=== PATIENT | female | born 1960 | race Caucasian/White ===

== ENCOUNTER 2018-01-22 20:04 | Emergency (ER) | payer OTHER ==
[~2018-01-22] VITALS: Ht 157.5 cm; Wt 121.1 kg
[~2018-01-22 20:04] MED LIST: ACET500 PO; DEXA4 PO; ENOX120I SUBQ; FERR325 PO; HYDACE5 PO; IBUPROFEN; IRON; LEVSOD200 PO; LEVSOD75 PO; LOPE2C PO; LORA1 PO; LOSA50 PO; OMEP10ER PO; OMEP20ER PO; PROC10 PO; SERT25 PO; SERT50 PO; TRAM50 PO; WARF5 PO
[2018-01-22] MEDS ORDERED: ANAS1 PO (20:28)
[2018-01-22] MEDS ORDERED: ROPI2 PO (20:29)
[2018-01-22] MEDS ORDERED: [UNRECOGNIZED DRUG - OTHER] (20:30)
== END 2018-01-22 22:31 | disposition home or self-care (01) ==
LOC: ER 20:04
DX: M79.89 Other specified soft tissue disorders (principal); F32.9 Major depressive disorder, single episode, unspecified; K21.9 Gastro-esophageal reflux disease without esophagitis; I10 Essential (primary) hypertension; E03.9 Hypothyroidism, unspecified; Z88.5 Allergy status to narcotic agent; Z88.8 Allergy status to other drugs, medicaments and biological substances; Z79.899 Other long term (current) drug therapy
CPT/HCPCS: 73130; 93971; 99284

== ENCOUNTER 2019-07-10 16:37 | Emergency (ER) | payer MEDICARE ==
[~2019-07-10] VITALS: Ht 157.5 cm; Wt 114.3 kg
[~2019-07-10 16:37] MED LIST changes: +ANAS1 PO; +ROPI2 PO; +[UNRECOGNIZED DRUG - OTHER]
[2019-07-10] MEDS ORDERED: Roxicodone5 MG PO (18:39)
== END 2019-07-10 19:20 | disposition home or self-care (01) ==
LOC: ER 16:37
DX: S52.572A Other intraarticular fracture of lower end of left radius, initial encounter for closed fracture (principal); S52.602A Unspecified fracture of lower end of left ulna, initial encounter for closed fracture; W01.198A Fall on same level from slipping, tripping and stumbling with subsequent striking against other object, initial encounter; K21.9 Gastro-esophageal reflux disease without esophagitis; F32.9 Major depressive disorder, single episode, unspecified; I10 Essential (primary) hypertension; Z85.3 Personal history of malignant neoplasm of breast
CPT/HCPCS: 29105; 73090; 96374-59; 99283-25; J1170

== ENCOUNTER 2019-07-15 10:21 | Day surgery (SDC) | payer MEDICARE ==
[~2019-07-15] VITALS: Ht 160 cm; Wt 114.7 kg
[~2019-07-15 10:21] MED LIST changes: +Roxicodone5 MG PO
--- NOTE | 2019-07-15 11:36 | NUR ---
07/15/19 1136 HORTENCIA FINN PATIENT REPORTS HX OF BILATERAL MASTECTOMY AND LN DISSECTION ON RIGHT AXILLA - REQUESTS NO IV AND BP ON RIGHT ARM. FX TO LEFT ARM. BP CUFF TO LEFT CALF FOR VITALS. DR. JACKMAN CONSULTED ON IV PLACEMENT - ORDER FOR FOOT IV ACCESS. SAMANTHA HOLDEN PLACED IV ACCESS TO LEFT FOOT. PATIENT READY FOR OR, FAMILY AT BEDSIDE, CALL LIGHT WITHIN REACH.
--- NOTE | 2019-07-15 12:31 | NUR ---
07/15/19 1231 Wandy Slade ONCE IN OR IT WAS NOTED THAT THE PT HAD ANY AREA OF REDENED SKIN WITH SMALL VASICLES ON THE INNER ASPECT OF HER WRIST. DDR. HUGHES MADE THE DETERMINATION TO CANCEL THE CASE DUE TO CONCERNS FOR CELLULITIS. PT AWAKENED AND TRANSFERRED TO PACU.
--- NOTE | 2019-07-15 14:15 | NUR ---
07/15/19 1415 Usha Andrews IV DC'D AT 1325 WITH 500 LFT
--- NOTE | 2019-07-15 16:20 | NUR ---
07/15/19 1620 Merle Faustin PT INCONTINENT OF LARGE AMT URINE. GOWN CHANGED AND PAD WITH UNDERWEAR APPLIED
== END 2019-07-15 13:40 | disposition home or self-care (01) ==
LOC: ORSCSDS 10:21
PROVIDERS: Orthopaedic Surgery
PROC: 2W3DX1Z Immobilization of Left Lower Arm using Splint (ICD-10-PCS; principal; 2019-07-15 11:45)
DX: S52.502A Unspecified fracture of the lower end of left radius, initial encounter for closed fracture (principal); S52.602A Unspecified fracture of lower end of left ulna, initial encounter for closed fracture; I10 Essential (primary) hypertension; G25.0 Essential tremor; Z86.718 Personal history of other venous thrombosis and embolism; E03.9 Hypothyroidism, unspecified; F32.9 Major depressive disorder, single episode, unspecified; Z79.899 Other long term (current) drug therapy
CPT/HCPCS: 82947; J0171; J0690; J2250; J2704; J3010; J7120

== ENCOUNTER 2019-07-22 12:16 | Day surgery (SDC) | payer MEDICARE ==
[~2019-07-22] VITALS: Ht 157.5 cm; Wt 113.7 kg
[2019-07-22] MEDS ORDERED: Venlafaxine HCl50 MG PO (13:24)
--- NOTE | 2019-07-22 16:08 | NUR ---
07/22/19 1608 Sandra Finn LMA OUT AT 1607
--- NOTE | 2019-07-22 16:31 | NUR ---
07/22/19 0051 Sandra Finn PT TRANSFERRED INTO THE CHAIR WITH STAND BY ASSIST. VSS. PT ACCOMPANIED BY HER MOTHER. PT DENIES NAUSEA. PT STATES PAIN IS 3/10. PT IS TOLERATING PO FLUIDS AND SNACKS WELL. WARM BLANKETS PROVIDED FOR COMFORT. CALL LIGHT IN REACH.
== END 2019-07-22 17:06 | disposition home or self-care (01) ==
LOC: ORSCSDS 12:16
PROVIDERS: Orthopaedic Surgery
PROC: 0PSJ04Z Reposition Left Radius with Internal Fixation Device, Open Approach (ICD-10-PCS; principal; 2019-07-22 15:00)
DX: S52.572A Other intraarticular fracture of lower end of left radius, initial encounter for closed fracture (principal); I10 Essential (primary) hypertension; E03.9 Hypothyroidism, unspecified; G47.33 Obstructive sleep apnea (adult) (pediatric); K21.9 Gastro-esophageal reflux disease without esophagitis; E66.01 Morbid (severe) obesity due to excess calories; Z68.42 Body mass index [BMI] 45.0-49.9, adult; Z79.899 Other long term (current) drug therapy
CPT/HCPCS: A9270-GY; C1713; J0171; J0690; J1100; J2250; J2405; J2704; J3010; J7120

== ENCOUNTER → 2022-07-06 | Outpatient (CLI) | payer MEDICARE ==
[~2022-07-06] MED LIST changes: +ALBU90OI INH; +Doxycycline Hy100 M3 PO; +Effexor Xr150 MG PO; +FLONASE ALLERG9.9 M2; +IBUP200 PO; +Inderal40 MG PO; +LEVOTHYROXINE PO; +LIDO700A20 TOP; +ROPINIROLE HCL3 M2 PO; +Venlafaxine HCl50 MG PO
[2022-07-06 19:26] LABS: Source, Urine Voided
[2022-07-06 19:41] LABS: Appearance, Urine Clear (Clear); Bilirubin, Urine Neg (Neg); Blood, Urine Neg (Neg); Color, Urine Yellow (P-Yellow); Glucose Qualitative, Urine Neg (Neg); Ketones, Urine Neg (Neg); Leukocyte Esterase, Urine 1+ (Neg); Nitrite, Urine Neg (Neg); Protein, Urine Neg (Neg); Urobilinogen, Urine NORM (Normal)
[2022-07-06 20:04] LABS: Red Blood Cells, Urine 0-2 /hpf (0-2); Squamous Epithelial Cells Few /hpf (Few); White Blood Cells, Urine 0-2 /hpf (0-5)
[2022-07-06 20:05] LABS: Bacteria Mod /hpf
== END ==
LOC: LAB SHORT 13:25 → LAB 13:25
PROVIDERS: Registered Nurse
DX: R30.0 Dysuria (principal)
CPT/HCPCS: 81001; 87086

== ENCOUNTER → 2022-07-11 | Outpatient (CLI) | payer MEDICARE ==
[2022-07-14 09:11] LABS: HPV 16 Negative (Negative); HPV 18 Negative (Negative); HPV OTHER HR TYPES Negative (Negative)
== END | disposition home or self-care (01) ==
LOC: LAB SHORT 13:15
PROVIDERS: Registered Nurse
DX: Z12.4 Encounter for screening for malignant neoplasm of cervix (principal); D26.0 Other benign neoplasm of cervix uteri
CPT/HCPCS: 87624; G0123

== ENCOUNTER 2024-05-16 18:48 | Emergency (ER) | payer MEDICARE ==
[~2024-05-16] VITALS: Ht 157.5 cm; Wt 124.7 kg
[2024-05-16 18:57] VITALS: BP 170/96
[2024-05-16] MEDS ORDERED: Ketorolac Tromethamine 15mg Vial IV ONE (19:05)
[2024-05-16] MEDS ORDERED: Albuterol 2.5 MG/3 ML VIAL INH SCH (19:05)
[2024-05-16] MEDS ORDERED: Lidocaine 4% 1 Patch TOP ONE (19:05)
[2024-05-16 19:44] LABS: BASOPHILS ABSOLUTE AUTO 0.11 K/mm3 (0.00-0.23); BASOPHILS PERCENT AUTO 1 % (0-2); EOSINOPHILS ABSOLUTE AUTO 1.13 K/mm3 (0.00-0.68); EOSINOPHILS PERCENT AUTO 8 % (0-6); Hematocrit 43.9 % (33.0-51.0); Hemoglobin 14.2 g/dL (11.5-16.0); IMMATURE GRAN ABSOLUTE AUTO 0.13 K/mm3 (0.00-0.10); IMMATURE GRAN PERCENT AUTO 1 % (0-1); LYMPHOCYTES ABSOLUTE AUTO 1.94 K/mm3 (0.84-5.20); LYMPHOCYTES PERCENT AUTO 15 % (21-46); MONOCYTES ABSOLUTE AUTO 1.08 K/mm3 (0.16-1.47); MONOCYTES PERCENT AUTO 8 % (4-13); Mean Corpuscular HGB Conc 32.3 g/dL (31.5-36.5); Mean Corpuscular Volume 84 fL (80-100); Mean Platelet Volume 11.5 fL (9.1-12.4); NEUTROPHILS ABSOLUTE AUTO 9.03 K/mm3 (1.96-9.15); NEUTROPHILS PERCENT AUTO 67 % (41-73); Platelet Count 297 K/mm3 (150-400); RDW Coefficient Variation 14.2 % (11.7-14.2); RDW Standard Deviation 42.9 fL (35.1-46.3); Red Blood Cell Count 5.25 M/mm3 (3.80-5.20); White Blood Cell Count 13.42 K/mm3 (4.00-11.30)
[2024-05-16] MEDS ORDERED: METFORMIN HCL500 M2 PO (19:59)
[2024-05-16] MEDS ORDERED: IPRAT-ALBUT 0.5-3 ML IH (20:00)
[2024-05-16] MEDS ORDERED: TRAZ50 PO (20:01)
[2024-05-16 20:03] LABS: Albumin, Blood 3.3 g/dL (3.4-5.0); Albumin/Globulin Ratio 0.8 (0.8-1.8); Bilirubin, Total 0.8 mg/dL (0.1-1.0); Bun/Creatinine Ratio 11.7 (12.0-20.0); Calcium, Blood 8.6 mg/dL (8.5-10.1); Creatinine, Blood 1.03 mg/dL (0.40-1.00); Potassium, Blood 4.3 mmol/L (3.5-5.5); Total Protein, Blood 7.3 g/dL (6.4-8.2)
[2024-05-16] MEDS ORDERED: Azithromycin 250 MG Tab PO ONE (20:40)
[2024-05-16] MEDS ORDERED: Cefuroxime Axetil 250 MG Tab PO ONE (20:40)
[2024-05-16] MEDS ORDERED: AZIT250 PO (20:41)
[2024-05-16] MEDS ORDERED: CEFU500T30 PO (20:41)
== END 2024-05-16 21:14 | disposition home or self-care (01) ==
LOC: ER 18:48
PROVIDERS: Student in an Organized Health Care Education/Training Program
DX: J18.9 Pneumonia, unspecified organism (principal); R10.9 Unspecified abdominal pain; M54.50 Low back pain, unspecified; J45.909 Unspecified asthma, uncomplicated; K21.9 Gastro-esophageal reflux disease without esophagitis; I10 Essential (primary) hypertension; Z88.5 Allergy status to narcotic agent; Z91.048 Other nonmedicinal substance allergy status; Z88.8 Allergy status to other drugs, medicaments and biological substances; Z79.890 Hormone replacement therapy; Z79.51 Long term (current) use of inhaled steroids; Z79.899 Other long term (current) drug therapy; W18.30XA Fall on same level, unspecified, initial encounter
CPT/HCPCS: 71046; 80053; 85025; 94644; 94664; 96374; 99284-25; A9270; J1885

== ENCOUNTER 2025-05-17 19:20 | Inpatient (IN) | payer MEDICARE ==
[~2025-05-17] VITALS: Ht 157.5 cm; Wt 117.9 kg
[~2025-05-17 19:20] MED LIST changes: +AZIT250 PO; +CEFU500T30 PO; +FUROSEMIDE40 MG PO; +IPRAT-ALBUT 0.5-3 ML NEB; -LEVOTHYROXINE PO; +LEVSOD150 PO; +LIDOCAINE1 EACH TD; +METFORMIN HCL500 M2 PO; +TRAZ50 PO; +TUSSIONEX PO
[2025-05-17 20:49] LABS: BASOPHILS ABSOLUTE AUTO 0.07 K/mm3 (0.00-0.23); BASOPHILS PERCENT AUTO 0 % (0-2); EOSINOPHILS ABSOLUTE AUTO 0.04 K/mm3 (0.00-0.68); EOSINOPHILS PERCENT AUTO 0 % (0-6); Hematocrit 37.9 % (33.0-51.0); Hemoglobin 12.0 g/dL (11.5-16.0); IMMATURE GRAN ABSOLUTE AUTO 0.11 K/mm3 (0.00-0.10); IMMATURE GRAN PERCENT AUTO 1 % (0-1); LYMPHOCYTES ABSOLUTE AUTO 1.14 K/mm3 (0.84-5.20); LYMPHOCYTES PERCENT AUTO 7 % (21-46); MONOCYTES ABSOLUTE AUTO 1.84 K/mm3 (0.16-1.47); MONOCYTES PERCENT AUTO 11 % (4-13); Mean Corpuscular HGB Conc 31.7 g/dL (31.5-36.5); Mean Corpuscular Volume 83 fL (80-100); NEUTROPHILS ABSOLUTE AUTO 13.62 K/mm3 (1.96-9.15); NEUTROPHILS PERCENT AUTO 81 % (41-73); NRBC ABSOLUTE 0.00 K/mm3 (0.00-0.02); NRBC Auto 0.0 /100 WBC (0.0-0.2); Platelet Count 368 K/mm3 (150-400); RDW Coefficient Variation 14.3 % (11.7-14.2); RDW Standard Deviation 43.3 fL (35.1-46.3)
[2025-05-17 21:12] LABS: Alanine Aminotransfer (ALT/SGP 82.0 U/L (12-78); Albumin, Blood 2.9 g/dL (3.4-5.0); Albumin/Globulin Ratio 0.6 (0.8-1.8); Anion Gap 10.0 mmol/L (3-11); Aspartate Aminotrans (AST/SGOT 45.0 U/L (12-37); Bilirubin, Total 1.6 mg/dL (0.1-1.0); Blood Urea Nitrogen 21.0 mg/dL (8-24); CO2, Blood 30.0 mmol/L (21-32); Calcium, Blood 9.1 mg/dL (8.5-10.1); Chloride, Blood 96.0 mmol/L (98-108); Creatinine, Blood 0.97 mg/dL (0.40-1.00); Globulin, Blood 5.2 g/dL (2.2-4.0); Glucose, Blood 99.0 mg/dL (70-99); Potassium, Blood 4.8 mmol/L (3.5-5.5); Sodium, Blood 131.0 mmol/L (136-145); Total Protein, Blood 8.1 g/dL (6.4-8.2)
[2025-05-17 21:27] LABS: Source, Urine Clean Catch
[2025-05-17 21:30] LABS: Glucose Qualitative, Urine Neg (Neg); Ketones, Urine Neg (Neg); Leukocyte Esterase, Urine 3+ (Neg); Protein, Urine 2+ (Neg); Specific Gravity, Urine 1.020 (1.003-1.022); Urobilinogen, Urine 3+ (Normal)
[2025-05-17 21:32] LABS: Bilirubin, Urine 1+ (Neg); Color, Urine Amber (P-Yellow)
[2025-05-17 21:38] LABS: Red Blood Cells, Urine 0-2 /hpf (0-2)
[2025-05-17] MEDS ORDERED: CefTRIAXone Sodium 1,000 MG in NS 100 ML IV ONE (23:40)
[2025-05-18] VITALS (7 sets, daily range): BP systolic 134–180; BP diastolic 83–103
[2025-05-18] MEDS ORDERED: HYDROmorphone HCl/Pf 1MG SYR IV PRN (00:20)
[2025-05-18 00:45] LABS: C-REACTIVE PROTEIN, EXT RANGE >19.000 mg/dL (0.000-0.300)
[2025-05-18] MEDS ORDERED: Inderal40 MG PO (02:52)
[2025-05-18] MEDS ORDERED: Ipratropium/Albuterol SulF 2.5-0.5MG/3 ML Amp INH PRN (03:20)
[2025-05-18] MEDS ORDERED: Albuterol HFA200 ACT/6.7 GM INH INH PRN (03:25)
[2025-05-18 03:56] LABS: BASOPHILS ABSOLUTE AUTO 0.08 K/mm3 (0.00-0.23); BASOPHILS PERCENT AUTO 1 % (0-2); EOSINOPHILS ABSOLUTE AUTO 0.08 K/mm3 (0.00-0.68); EOSINOPHILS PERCENT AUTO 1 % (0-6); Hematocrit 37.9 % (33.0-51.0); Hemoglobin 11.8 g/dL (11.5-16.0); IMMATURE GRAN ABSOLUTE AUTO 0.11 K/mm3 (0.00-0.10); IMMATURE GRAN PERCENT AUTO 1 % (0-1); LYMPHOCYTES ABSOLUTE AUTO 1.12 K/mm3 (0.84-5.20); LYMPHOCYTES PERCENT AUTO 7 % (21-46); MONOCYTES ABSOLUTE AUTO 1.75 K/mm3 (0.16-1.47); MONOCYTES PERCENT AUTO 12 % (4-13); Mean Corpuscular HGB Conc 31.1 g/dL (31.5-36.5); Mean Corpuscular Volume 83 fL (80-100); NEUTROPHILS ABSOLUTE AUTO 11.99 K/mm3 (1.96-9.15); NEUTROPHILS PERCENT AUTO 79 % (41-73); NRBC ABSOLUTE 0.00 K/mm3 (0.00-0.02); NRBC Auto 0.0 /100 WBC (0.0-0.2); Platelet Count 340 K/mm3 (150-400); RDW Coefficient Variation 14.4 % (11.7-14.2); RDW Standard Deviation 43.7 fL (35.1-46.3)
[2025-05-18 04:08] LABS: Prothrombin Time Results 13.6 Sec (9.7-11.5)
[2025-05-18 04:14] LABS: Alanine Aminotransfer (ALT/SGP 70.0 U/L (12-78); Albumin, Blood 2.9 g/dL (3.4-5.0); Albumin/Globulin Ratio 0.6 (0.8-1.8); Anion Gap 8.0 mmol/L (3-11); Aspartate Aminotrans (AST/SGOT 22.0 U/L (12-37); Bilirubin, Total 1.4 mg/dL (0.1-1.0); Blood Urea Nitrogen 21.0 mg/dL (8-24); CO2, Blood 33.0 mmol/L (21-32); Calcium, Blood 8.7 mg/dL (8.5-10.1); Chloride, Blood 95.0 mmol/L (98-108); Creatinine, Blood 0.93 mg/dL (0.40-1.00); Globulin, Blood 5.0 g/dL (2.2-4.0); Glucose, Blood 119.0 mg/dL (70-99); Potassium, Blood 3.2 mmol/L (3.5-5.5); Sodium, Blood 133.0 mmol/L (136-145); Total Protein, Blood 7.9 g/dL (6.4-8.2)
[2025-05-18] MEDS ORDERED: Levothyroxine Sodium 0.15 MG Tab PO SCH (06:00)
--- NOTE | 2025-05-18 06:34 | NUR ---
PT MONITORED DURING THE SHIFT.PT ON 1L OXYGEN VIA NC,MAINTAINED OXYGEN SATURATION >92%.THE NC OCCASIONALLY SHIFTED FROM PT'S NOSTRILS ,PT'S OXYGEN SATURATION DROPPED DOWN TO 86% ON RA. CAME TO THE BEDSIDE TO SEE PT BUT SHE WAS ASLEEP. SAID TO KEEP PT NPO EXCEPT FOR MEDS AND SAID THAT PT NEEDS A CPAP.PT'S POTASSIUM 3.2 THIS MORNING, NOTIFIED.ORDER PLACED FOR IV POTASSIUM INFUSION.PT SLEEPING,EASILY AROUSABLE.PT DENIES PAIN,DENIES SOB,DENIES NEEDS.CALL LIGHT AND PT'S ITEMS WITHIN REACH.MONITORING ONGOING PER CAREPLAN.
[2025-05-18] MEDS ORDERED: NS 250 ML IV PRN (07:35)
--- NOTE | 2025-05-18 09:45 | NUR ---
AM NOTE: PATIENT ALERT AND ORIENTED X4. UP WITH SBA. COMPLAINS OF RIGHT SIDE/BACK/SHOULDER PAIN THIS MORNING, 6/10 AND DESCRIBED A SHARP ACHE. MEDICATED PER EMAR WITH GOOD RELIEF. UP TO CHAIR THIS MORNING AND TOLERATED WELL. MOVING ALL EXTREMITIES. FOLLOWING COMMANDS. PERRLA, WEARING GLASSES. WEARING 1L NASAL CANNULA. DIMINISHED CRACKLES HEARD IN BILATERAL BASES. SOB WITH ANY EXCERTION. EVEN AND UNLABORED RESPIRATIONS AT REST. PATIENT UNABLE TO LAY FLAT FOR LONGER THAN 15 MIN. TELE SHOWING SR WITH HR 60-70'S. DENIES CHEST PAIN/PRESSURE/PALPITATIONS. IV POTASSIUM INFUSING THIS AM. SCD'S IN PLACE. BLE MINIMAL EDEMA AND MODERATE/DEEP EDEMA TO RIGHT UPPER EXTREMITY. PATIENT REPORTS RIGHT UPPER EXTREMITY EDEMA IMPROVED FROM BASELINE. PLAN FOR ECHO. BOWEL TONES PRESENT. UP TO BSC TO VOID. ATTENDS IN PLACE. DENIES NAUSEA. DR. PALACIOS TO BEDSIDE THIS AM, THIS RN PRESENT. NO NEW ORDERS FOR THIS RN TO PLACE. DR. YOU TO BEDSIDE, THIS RN PRESENT. ORDERS FOR LOW SLIDING SCALE HUMALOG SC BEFORE MEALS, AC BLOOD SUGAR CHECKS AND CLEAR LIQUID DIET AT THIS TIME. NAVA MANCINI AT BEDSIDE FOR KENYATTA ASSESSMENT. CALL LIGHT IN REACH. DENIES NEEDS AT THIS TIME.
[2025-05-18] MEDS ORDERED: Furosemide 10 MG / ML 2ML Vial IV SCH (11:00)
[2025-05-18] MEDS ORDERED: Insulin Human Lispro 100 Units/ML 3ML Syringe SC SCH (11:30)
--- NOTE | 2025-05-18 13:08 | NUR ---
DR. ROTHMAN TO BEDSIDE, THIS RN PRESENT. PATIENT TITRATED TO ROOM AIR AND SATING 93-95%. NO NEW ORDERS FOR THIS RN TO PLACE. PATIENT SITTING UP IN CHAIR EATING CLEAR LIQUID LUNCH. DENIES NEEDS. CALL LIGHT IN REACH.
--- NOTE | 2025-05-18 17:36 | NUR ---
SHIFT SUMMARY: PATIENT REMAINS ALERT AND ORIENTED. UP TO CHAIR FOR MEALS AND BSC. INTERMIT RIGHT FLANK/BACK/SHOULDER PAIN. MEDICATED PER EMAR WITH GOOD PAIN RELIEF. ON ROOM AIR WHILE AWAKE. NEEDING UP TO 2L WHEN EXCERTING SELF OR SLEEPING. OCCASIONAL DRY COUGH. TELE SHOWING SR WITH HR 60-80'S. CONTINUES TO DENY CHEST PAIN. ECHO COMPLETED THIS AM. RIGHT ARM REMAINS EDEMATOUS. IV SALINE LOCKED. TOLERATING CLEAR LIQUID DIET. SITTING UP IN CHAIR AT THIS TIME EATING DINNER. CALL LIGHT IN REACH. DENIES NEEDS.
--- NOTE | 2025-05-18 19:44 | NUR ---
ASSUMPTION OF CARE ASSUMED PT'S CARE AT 1900,BEDSIDE REPORT COMPLETED.PT SITTING ON THE TOILET,STATES TRYING TO HAVE A BOWEL MOVEMENT.PT REPORTS RIGHT ABDOMINAL PAIN,STATES THAT SHE IS NOT SURE IF ITS RELATED TO GAS PAIN.PT DENIES SOB,DENIES NEEDS.CALL LIGHT WITHIN REACH.PLAN OF CARE REVIEWED.MONITORING ONGOING PER CAREPLAN.
[2025-05-19 00:21] VITALS: BP 154/96
[2025-05-19 03:57] VITALS: BP 108/65
[2025-05-19 04:12] LABS: BASOPHILS ABSOLUTE AUTO 0.06 K/mm3 (0.00-0.23); BASOPHILS PERCENT AUTO 1 % (0-2); EOSINOPHILS ABSOLUTE AUTO 0.18 K/mm3 (0.00-0.68); EOSINOPHILS PERCENT AUTO 1 % (0-6); Hematocrit 37.9 % (33.0-51.0); Hemoglobin 11.6 g/dL (11.5-16.0); IMMATURE GRAN ABSOLUTE AUTO 0.06 K/mm3 (0.00-0.10); IMMATURE GRAN PERCENT AUTO 1 % (0-1); LYMPHOCYTES ABSOLUTE AUTO 1.21 K/mm3 (0.84-5.20); LYMPHOCYTES PERCENT AUTO 10 % (21-46); MONOCYTES ABSOLUTE AUTO 1.50 K/mm3 (0.16-1.47); MONOCYTES PERCENT AUTO 12 % (4-13); Mean Corpuscular HGB Conc 30.6 g/dL (31.5-36.5); Mean Corpuscular Volume 84 fL (80-100); NEUTROPHILS ABSOLUTE AUTO 9.56 K/mm3 (1.96-9.15); NEUTROPHILS PERCENT AUTO 76 % (41-73); NRBC ABSOLUTE 0.00 K/mm3 (0.00-0.02); NRBC Auto 0.0 /100 WBC (0.0-0.2); Platelet Count 373 K/mm3 (150-400); RDW Coefficient Variation 14.3 % (11.7-14.2); RDW Standard Deviation 44.3 fL (35.1-46.3)
[2025-05-19 04:50] LABS: Alanine Aminotransfer (ALT/SGP 49.0 U/L (12-78); Albumin, Blood 2.8 g/dL (3.4-5.0); Albumin/Globulin Ratio 0.6 (0.8-1.8); Anion Gap 8.0 mmol/L (3-11); Aspartate Aminotrans (AST/SGOT 16.0 U/L (12-37); Bilirubin, Total 1.2 mg/dL (0.1-1.0); Blood Urea Nitrogen 18.0 mg/dL (8-24); CO2, Blood 33.0 mmol/L (21-32); Calcium, Blood 8.8 mg/dL (8.5-10.1); Chloride, Blood 93.0 mmol/L (98-108); Creatinine, Blood 0.85 mg/dL (0.40-1.00); Globulin, Blood 4.8 g/dL (2.2-4.0); Glucose, Blood 154.0 mg/dL (70-99); Potassium, Blood 3.2 mmol/L (3.5-5.5); Sodium, Blood 131.0 mmol/L (136-145); Total Protein, Blood 7.6 g/dL (6.4-8.2)
--- NOTE | 2025-05-19 06:49 | NUR ---
PT MONITORED DURING THE SHIFT.PRN PAIN MEDICINE GIVEN ORDERED FOR RIGHT FLANK PAIN.PT REQUESTING LIDOCAINE PATCH THIS MORNING.PT HAS BEEN SLEEPING IN CHAIR SINCE 0300.PT'S POTASSIUM 3.2 THIS MORNING. NOTIFIED,40MEQ IN 250ML NS ORDERED.MED INFUSING AT A SLOW RATE OF 30ML/HR.PT NOT ABLE TO TOLERATE THE ORDERED RATE OF 67.5ML/HR.PT DENIES PAIN,DENIES SOB,DENIES NEEDS AT THIS TIME.CALL LIGHT AND PT'S ITEMS WITHIN REACH.MONITORING ONGOING PER CAREPLAN.
--- NOTE | 2025-05-19 07:38 | NUR ---
ASSUMPTION NOTE: THIS RN TO ASSUME CARE OF PATIENT. PATIENT AWAKE IN BED,WATCHING TV. PATIENT VITAL SIGNS STABLE. PATIENT REPORTED 2/10 PAIN IN THE ABDOMEN BUT DENIED NEEDING ANYTHING AT THIS MOMENT. HAS CALL LIGHT WITHIN REACH, BED IN LOWEST POSITION AND STATING NOTHING ESLE IS NEEDED AT THIS TIME. POTASSIUM IS RUNNING AT 25MLS/HR DUE TO BURNING AT THE SITE.
[2025-05-19 07:39] VITALS: BP 111/67
--- NOTE | 2025-05-19 08:57 | NUR ---
MD ROUNDED: GENERAL SURGERY ROUNDED ON PATIENT AND ORDERED AN MRCP FOR TODAY. MRI SCREENING FORM TO BE COMPLETED ONCE IT ARRIVES. PATIENT AWARE AND AGREEABLE.
[2025-05-19] MEDS ORDERED: Furosemide 10 MG / ML 2ML Vial IV SCH (09:00)
[2025-05-19] MEDS ORDERED: CefTRIAXone Sodium 1,000 MG in NS 100 ML IV SCH (09:00)
[2025-05-19] MEDS ORDERED: Lidocaine 4% 1 Patch TOP SCH (11:00)
[2025-05-19 16:32] VITALS: BP 112/76
--- NOTE | 2025-05-19 18:35 | NUR ---
SHIFT SUMMARY: PATIENT IS ALERT AND ORIENTED X4 & COOPERATIVE WITH HER CARE, IS ABLE TO MAKE NEEDS KNOW & USES CALL LIGHT APPROPRIATELY. PATIENT SATTING >92% ON 1-2 LITERS PRN. PATIENT IS MEDICAL WITHOUT TELE STATUS. PATIENT HAD AN MRCP DONE TODAY AND RESULUTS ARE IN THE CHART. PATIENT WAS MEDICATED WITH PAIN MEDS THORUGHOUT THE SHIFT PER EMAR. PATIENT AGREEABLE TO STAYING ANOTHER NIGHT TO AWAIT RESULTS. SURGERY SEEN PATIENT TODAY AND NOTIFIED SHE WOULDN'T BE A CANIDATE FOR SURGERY CURRENTLY FOR THE GALLSTONE DUE TO NOT BEING ABLE TO LAY FLAT FOR LONG PERIODS WITH HER LEFT LUNG. PATIENT CONTINUES TO BE ON A CLEAR LIQUID DIET AND BLOOD SUGARS WERE MAINTED THROUGHOUT NOT NEEDING ANY INSULIN. PATIENT CURRENTL SITTING UP IN CHAIR, CALL LIGHT WITHIN REACH, STATIING NOTHING ELSE IS NEEDED AT THIS TIME.
[2025-05-19 19:44] VITALS: BP 124/70
[2025-05-20 03:38] VITALS: BP 127/62
[2025-05-20 07:18] VITALS: BP 101/80
[2025-05-20 11:03] LABS: BASOPHILS ABSOLUTE AUTO 0.06 K/mm3 (0.00-0.23); BASOPHILS PERCENT AUTO 1 % (0-2); EOSINOPHILS ABSOLUTE AUTO 0.14 K/mm3 (0.00-0.68); EOSINOPHILS PERCENT AUTO 1 % (0-6); Hematocrit 35.4 % (33.0-51.0); Hemoglobin 11.2 g/dL (11.5-16.0); IMMATURE GRAN ABSOLUTE AUTO 0.07 K/mm3 (0.00-0.10); IMMATURE GRAN PERCENT AUTO 1 % (0-1); LYMPHOCYTES ABSOLUTE AUTO 0.87 K/mm3 (0.84-5.20); LYMPHOCYTES PERCENT AUTO 7 % (21-46); MONOCYTES ABSOLUTE AUTO 0.94 K/mm3 (0.16-1.47); MONOCYTES PERCENT AUTO 8 % (4-13); Mean Corpuscular HGB Conc 31.6 g/dL (31.5-36.5); Mean Corpuscular Volume 82 fL (80-100); NEUTROPHILS ABSOLUTE AUTO 9.90 K/mm3 (1.96-9.15); NEUTROPHILS PERCENT AUTO 83 % (41-73); NRBC ABSOLUTE 0.00 K/mm3 (0.00-0.02); NRBC Auto 0.0 /100 WBC (0.0-0.2); Platelet Count 406 K/mm3 (150-400); RDW Coefficient Variation 14.5 % (11.7-14.2); RDW Standard Deviation 43.1 fL (35.1-46.3)
[2025-05-20 11:59] LABS: Alanine Aminotransfer (ALT/SGP 35.0 U/L (12-78); Albumin, Blood 2.5 g/dL (3.4-5.0); Albumin/Globulin Ratio 0.5 (0.8-1.8); Anion Gap 9.0 mmol/L (3-11); Aspartate Aminotrans (AST/SGOT 11.0 U/L (12-37); Bilirubin, Total 0.8 mg/dL (0.1-1.0); Blood Urea Nitrogen 26.0 mg/dL (8-24); CO2, Blood 31.0 mmol/L (21-32); Calcium, Blood 9.0 mg/dL (8.5-10.1); Chloride, Blood 95.0 mmol/L (98-108); Creatinine, Blood 1.13 mg/dL (0.40-1.00); Globulin, Blood 4.7 g/dL (2.2-4.0); Glucose, Blood 190.0 mg/dL (70-99); Potassium, Blood 3.1 mmol/L (3.5-5.5); Sodium, Blood 132.0 mmol/L (136-145); Total Protein, Blood 7.2 g/dL (6.4-8.2)
[2025-05-20 15:14] VITALS: BP 138/87
--- NOTE | 2025-05-20 17:22 | NUR ---
SHIFT SUMMARY PATIENT ALERT AND ORIENTED X4. PATIENT MAKE NEEDS KNOWN. COMPLAINED OF PAIN - MEDICATION ADMINISTERED PER EMAR. PATIENT PLEASANT AND RECEPTIVE DURING CARE. NO ACUTE CHANGE DURING THIS SHIFT. SELF REPOSITIONED THROUGHOUT SHIFT. BED LOCKED AND IN LOWEST POSITION. CALL LIGHT WITHIN REACH.
[2025-05-20 19:18] VITALS: BP 152/84
[2025-05-20] MEDS ORDERED: Polyethylene Glycol 3350 17 gm PO SCH (21:00)
[2025-05-21 04:04] VITALS: BP 110/74
[2025-05-21 05:27] LABS: BASOPHILS ABSOLUTE AUTO 0.05 K/mm3 (0.00-0.23); BASOPHILS PERCENT AUTO 0 % (0-2); EOSINOPHILS ABSOLUTE AUTO 0.28 K/mm3 (0.00-0.68); EOSINOPHILS PERCENT AUTO 3 % (0-6); Hematocrit 34.4 % (33.0-51.0); Hemoglobin 10.9 g/dL (11.5-16.0); IMMATURE GRAN ABSOLUTE AUTO 0.08 K/mm3 (0.00-0.10); IMMATURE GRAN PERCENT AUTO 1 % (0-1); LYMPHOCYTES ABSOLUTE AUTO 1.36 K/mm3 (0.84-5.20); LYMPHOCYTES PERCENT AUTO 12 % (21-46); MONOCYTES ABSOLUTE AUTO 1.72 K/mm3 (0.16-1.47); MONOCYTES PERCENT AUTO 15 % (4-13); Mean Corpuscular HGB Conc 31.7 g/dL (31.5-36.5); Mean Corpuscular Volume 82 fL (80-100); NEUTROPHILS ABSOLUTE AUTO 7.71 K/mm3 (1.96-9.15); NEUTROPHILS PERCENT AUTO 69 % (41-73); NRBC ABSOLUTE 0.00 K/mm3 (0.00-0.02); NRBC Auto 0.0 /100 WBC (0.0-0.2); Platelet Count 393 K/mm3 (150-400); RDW Coefficient Variation 14.6 % (11.7-14.2); RDW Standard Deviation 42.8 fL (35.1-46.3)
[2025-05-21 05:52] LABS: Alanine Aminotransfer (ALT/SGP 30.0 U/L (12-78); Albumin, Blood 2.6 g/dL (3.4-5.0); Albumin/Globulin Ratio 0.6 (0.8-1.8); Anion Gap 5.0 mmol/L (3-11); Aspartate Aminotrans (AST/SGOT 14.0 U/L (12-37); Bilirubin, Total 0.9 mg/dL (0.1-1.0); Blood Urea Nitrogen 19.0 mg/dL (8-24); CO2, Blood 33.0 mmol/L (21-32); Calcium, Blood 9.0 mg/dL (8.5-10.1); Chloride, Blood 97.0 mmol/L (98-108); Creatinine, Blood 0.87 mg/dL (0.40-1.00); Globulin, Blood 4.5 g/dL (2.2-4.0); Glucose, Blood 124.0 mg/dL (70-99); Potassium, Blood 3.4 mmol/L (3.5-5.5); Sodium, Blood 132.0 mmol/L (136-145); Total Protein, Blood 7.1 g/dL (6.4-8.2)
--- NOTE | 2025-05-21 06:18 | NUR ---
SHIFT SUMMARY A/Ox4, VSS ON 2L. PT TRIED CPAP OVERNIGHT, RETURNED TO TN BY REQUEST. PT REPORTS 5-6/10 R FLANK PAIN, MANAGED WITH PRN DILAUDID AND TYLENOL. UP TO RESTROOM WITH SBA. NO ACUTE CHANGES OVERNIGHT. PT DENIES SOB, NAUSEA, OTHER COMPLAINTS.
[2025-05-21 07:02] VITALS: BP 117/68
[2025-05-21] MEDS ORDERED: Magnesium Hydroxide Conc 10 ML UDC PO PRN (10:55)
[2025-05-21] MEDS ORDERED: Torsemide 20 MG TAB PO SCH (11:00)
[2025-05-21] MEDS ORDERED: ACET325 PO (15:07)
[2025-05-21] MEDS ORDERED: CEFP200 PO (15:10)
[2025-05-21] MEDS ORDERED: LIDO700A20 TOP (15:12)
[2025-05-21] MEDS ORDERED: DULCOLAX400 MG/51 PO (15:15)
[2025-05-21] MEDS ORDERED: MIRALAX17 GM (15:34)
[2025-05-21] MEDS ORDERED: POTCHL20ER PO (15:35)
[2025-05-21] MEDS ORDERED: SENN187 PO (15:37)
[2025-05-21] MEDS ORDERED: TORSE20 PO (15:37)
--- NOTE | 2025-05-21 16:05 | NUR ---
DISCHARGE NOTE PATIENT DISCHARGED AT 1545. PRINTED AND REVIEWED DISCHARGE INSTRUCTIONS WITH PATIENT, VERBALIZED UNDERSTANDING. ALERT AND ORIENTED X4, VSS. PATIENT DENIES PAIN AND VOIDING. BELONGINGS RETURNED TO PATIENT. PATIENT LEFT THE FLOOR VIA WHEELCHAIR WITH THIS LN.
== END 2025-05-21 15:55 | disposition home health service (06) | DRG 444 ==
LOC: ER 19:20 → PCU 19:21 → MEDS 05-18 15:40
PROVIDERS: Internal Medicine; Student in an Organized Health Care Education/Training Program; ADMIT Internal Medicine
DX: K80.20 Calculus of gallbladder without cholecystitis without obstruction (principal); J18.9 Pneumonia, unspecified organism; I31.39 Other pericardial effusion (noninflammatory); J90 Pleural effusion, not elsewhere classified; N39.0 Urinary tract infection, site not specified; I50.30 Unspecified diastolic (congestive) heart failure; Z68.42 Body mass index [BMI] 45.0-49.9, adult; K21.9 Gastro-esophageal reflux disease without esophagitis; F32.A Depression, unspecified; J45.909 Unspecified asthma, uncomplicated; E66.01 Morbid (severe) obesity due to excess calories; I11.0 Hypertensive heart disease with heart failure; Z79.84 Long term (current) use of oral hypoglycemic drugs; Z79.890 Hormone replacement therapy; Z79.899 Other long term (current) drug therapy; Z88.8 Allergy status to other drugs, medicaments and biological substances; Z85.3 Personal history of malignant neoplasm of breast; Z98.51 Tubal ligation status; Z90.13 Acquired absence of bilateral breasts and nipples
CPT/HCPCS: 36415; 71046; 71260; 74181; 76705; 78226; 80053; 81001; 82947; 83605; 83690; 84484; 85025; 85610; 86140; 87086; 93005; 93010; 93306; 94640; 94664; 94760; 94761; 94762; 96374; 96375; 96376; 99285-25; A9270; A9537; G0378; J0696; J1171; J1938; J3480; J7050; Q9967

== ENCOUNTER 2025-06-16 15:21 | Inpatient (IN) | payer MEDICARE ==
[~2025-06-16] VITALS: Ht 160 cm; Wt 115.4 kg
[~2025-06-16 15:21] MED LIST changes: +ACET325 PO; +CEFP200 PO; +DULCOLAX400 MG/51 PO; +MIRALAX17 GM; +POTCHL20ER PO; +SENN187 PO; +TORSE20 PO
[2025-06-16 16:25] LABS: BASOPHILS ABSOLUTE AUTO 0.11 K/mm3 (0.00-0.23); BASOPHILS PERCENT AUTO 1 % (0-2); EOSINOPHILS ABSOLUTE AUTO 1.12 K/mm3 (0.00-0.68); EOSINOPHILS PERCENT AUTO 8 % (0-6); Hematocrit 37.6 % (33.0-51.0); Hemoglobin 11.7 g/dL (11.5-16.0); IMMATURE GRAN ABSOLUTE AUTO 0.10 K/mm3 (0.00-0.10); IMMATURE GRAN PERCENT AUTO 1 % (0-1); LYMPHOCYTES ABSOLUTE AUTO 1.43 K/mm3 (0.84-5.20); LYMPHOCYTES PERCENT AUTO 10 % (21-46); MONOCYTES ABSOLUTE AUTO 1.40 K/mm3 (0.16-1.47); MONOCYTES PERCENT AUTO 10 % (4-13); Mean Corpuscular HGB Conc 31.1 g/dL (31.5-36.5); Mean Corpuscular Volume 81 fL (80-100); NEUTROPHILS ABSOLUTE AUTO 10.51 K/mm3 (1.96-9.15); NEUTROPHILS PERCENT AUTO 72 % (41-73); NRBC ABSOLUTE 0.00 K/mm3 (0.00-0.02); NRBC Auto 0.0 /100 WBC (0.0-0.2); Platelet Count 427 K/mm3 (150-400); RDW Coefficient Variation 14.1 % (11.7-14.2); RDW Standard Deviation 41.5 fL (35.1-46.3)
[2025-06-16 16:57] LABS: Alanine Aminotransfer (ALT/SGP 28.0 U/L (12-78); Albumin, Blood 3.1 g/dL (3.4-5.0); Albumin/Globulin Ratio 0.6 (0.8-1.8); Anion Gap 5.0 mmol/L (3-11); Aspartate Aminotrans (AST/SGOT 15.0 U/L (12-37); Bilirubin, Total 0.5 mg/dL (0.1-1.0); Blood Urea Nitrogen 13.0 mg/dL (8-24); CO2, Blood 36.0 mmol/L (21-32); Calcium, Blood 9.5 mg/dL (8.5-10.1); Chloride, Blood 94.0 mmol/L (98-108); Creatinine, Blood 0.83 mg/dL (0.40-1.00); Globulin, Blood 5.4 g/dL (2.2-4.0); Glucose, Blood 124.0 mg/dL (70-99); Potassium, Blood 3.3 mmol/L (3.5-5.5); Sodium, Blood 132.0 mmol/L (136-145); Total Protein, Blood 8.5 g/dL (6.4-8.2)
[2025-06-16] MEDS ORDERED: Ampicillin Sod/Sulbactam Sod 3 GM in NS 100 ML IV ONE (22:25)
[2025-06-16] MEDS ORDERED: Ondansetron HCl 2 MG / ML 2ML Vial IV PRN (22:50)
[2025-06-16] MEDS ORDERED: Albuterol 2.5 MG/3 ML VIAL INH PRN (22:50)
[2025-06-16] MEDS ORDERED: FLU VACC TS2025-26(6MOS UP)/PF 45 MCG/0.5 ML SYRINGE IM SCH (22:55)
[2025-06-16] MEDS ORDERED: Morphine Sulfate 4 MG/1 ML Injection IV ONE (23:05)
[2025-06-17 00:17] VITALS: BP 130/80
[2025-06-17] MEDS ORDERED: FURO20 PO (00:33)
[2025-06-17] MEDS ORDERED: GUAI600T33 PO (00:34)
[2025-06-17 00:57] LABS: Glucose, Body Fluid 47 mg/dL
[2025-06-17 00:58] LABS: Lactate Dehydrogenase, Body Fl 312 U/L
[2025-06-17 01:02] LABS: Automated BF RBC Count 0.006 M/mm3 (0-0); Automated BF WBC Count 0.423 K/mm3 (0-999); RBC Count, Body Fluid 6000 /mm3 (0-0)
[2025-06-17 01:29] LABS: Color, Body Fluid Red (None-Yellow); Eosinophils, Fluid 13.0 % (0.0-10.0); Lymphocytes, Fluid 8.0 % (0.0-18.0); Monocytes/Mononuclear, Fluid 12.0 % (0.0-50.0); Neutrophils, Fluid 67.0 % (0.0-25.0); Total Cell Count, Body Fluid 100
--- NOTE | 2025-06-17 01:43 | NUR ---
ADMIT NOTE FOR 06/17/25 0011 REPORT WAS RECEIVED FROM ER AND PT WAS BROUGHT DOWN ON A GURNEY AND TRANSFERRED TO THE BED. PT WAS ORIENTED TO THE ROOM AND STAFF. PT ALERT ORIENTED X 4 ABLE TO VERBALIZE NEEDS. SHE HAS A PLEURAL VAC TO HER LT POSTERIOR CHEST THAT HAS DRESSING CLEAR DRY AND INTACT. NO C/O PAIN ON ADMIT. NO C/O CHEST PAIN OR PRESSURE SHES IN NSR AT 72. REMAINS ON O2 AT 2L VIA NC. SHE RECEIVED HER UNASYN. NO C/O SOB. SHE STATED THAT SHE GETS SOB ON EXERTION. RESTING IN BED AT THIS TIME WITH CALL LIGHT IN REACH
[2025-06-17 03:52] VITALS: BP 107/52
[2025-06-17 03:54] LABS: BASOPHILS ABSOLUTE AUTO 0.08 K/mm3 (0.00-0.23); BASOPHILS PERCENT AUTO 1 % (0-2); EOSINOPHILS ABSOLUTE AUTO 0.96 K/mm3 (0.00-0.68); EOSINOPHILS PERCENT AUTO 9 % (0-6); Hematocrit 33.1 % (33.0-51.0); Hemoglobin 10.4 g/dL (11.5-16.0); IMMATURE GRAN ABSOLUTE AUTO 0.08 K/mm3 (0.00-0.10); IMMATURE GRAN PERCENT AUTO 1 % (0-1); LYMPHOCYTES ABSOLUTE AUTO 1.50 K/mm3 (0.84-5.20); LYMPHOCYTES PERCENT AUTO 14 % (21-46); MONOCYTES ABSOLUTE AUTO 1.14 K/mm3 (0.16-1.47); MONOCYTES PERCENT AUTO 10 % (4-13); Mean Corpuscular HGB Conc 31.4 g/dL (31.5-36.5); Mean Corpuscular Volume 80 fL (80-100); NEUTROPHILS ABSOLUTE AUTO 7.28 K/mm3 (1.96-9.15); NEUTROPHILS PERCENT AUTO 66 % (41-73); NRBC ABSOLUTE 0.00 K/mm3 (0.00-0.02); NRBC Auto 0.0 /100 WBC (0.0-0.2); Platelet Count 331 K/mm3 (150-400); RDW Coefficient Variation 14.1 % (11.7-14.2); RDW Standard Deviation 40.4 fL (35.1-46.3)
[2025-06-17] MEDS ORDERED: NS 250 ML IV PRN (04:00)
[2025-06-17 04:14] LABS: Alanine Aminotransfer (ALT/SGP 19.0 U/L (12-78); Albumin, Blood 2.4 g/dL (3.4-5.0); Albumin/Globulin Ratio 0.5 (0.8-1.8); Anion Gap 6.0 mmol/L (3-11); Aspartate Aminotrans (AST/SGOT 8.0 U/L (12-37); Bilirubin, Total 0.5 mg/dL (0.1-1.0); Blood Urea Nitrogen 15.0 mg/dL (8-24); CO2, Blood 35.0 mmol/L (21-32); Calcium, Blood 8.6 mg/dL (8.5-10.1); Chloride, Blood 96.0 mmol/L (98-108); Creatinine, Blood 0.81 mg/dL (0.40-1.00); Globulin, Blood 4.4 g/dL (2.2-4.0); Glucose, Blood 138.0 mg/dL (70-99); Potassium, Blood 2.8 mmol/L (3.5-5.5); Sodium, Blood 134.0 mmol/L (136-145); Total Protein, Blood 6.8 g/dL (6.4-8.2)
--- NOTE | 2025-06-17 05:40 | NUR ---
PT WAS A NEW ADMIT TONIGHT. PT IS A&OX4, COOPERATIVE WITH CARE. VSS ON 2L VIA NC, SATS 96-97%. PTS BASELINE IS 2L HOME USE. SR 72. DENIES PAIN. TOLERATING A HEART HEALTHY DIET, SBA TO BR. HAS STRESS INCONTINENCE AND WEARS PADS IN HER UNDERWEAR. PTS POTASSIUM LEVEL WAS 2.8. ORDERS PUT IN BY MD FOR REPLACEMENT. SHE HAS A CARE HOME PLEURX CATHETER TO HER LT POSTERIOR CHEST THAT SHE WAS SENT HOME WITH AFTER LUNG SURGERY 8 DAYS AGO AT [facility]. SHE HAS A INCISION TO HER LT MID BACK FROM SURGERY. REMAINS ON UNASYN Q6HR. TAKES MEDS WHOLE WITH WATER. BED IN LOWEST POSITION, CALL LIGHT WITHIN REACH. CALLS APPROPRIATELY AND IS ABLE TO ADVOCATE NEEDS EFFECTIVELY.
[2025-06-17] MEDS ORDERED: Ampicillin Sod/Sulbactam Sod 3 GM in NS 100 ML IV SCH (06:00)
[2025-06-17 07:39] VITALS: BP 103/58
[2025-06-17] MEDS ORDERED: FUROSEMIDE40 MG PO (08:01)
[2025-06-17] MEDS ORDERED: Lactobacil 2-S.Thermo-Bifido 1 1 Cap PO SCH (09:00)
[2025-06-17] MEDS ORDERED: Enoxaparin 40 MG/0.4 ML SYR SC SCH (09:00)
[2025-06-17 13:03] VITALS: BP 111/62
[2025-06-17] MEDS ORDERED: AMOCLA875 PO (13:31)
[2025-06-17] MEDS ORDERED: PROBIOTIC1 EA13 PO (13:31)
--- NOTE | 2025-06-17 15:01 | NUR ---
DISCHARGE: PULMONOLOGY CONSULT AT BEDSIDE THIS AM, PT CLEARED FOR DC HOME ON ABX THERAPY AND CONTINUED HOME CARE OF DRAIN. PT HAS BEEN A&Ox4, INDEPENDENT IN ROOM, O2 SATS MAINTAINED >92% ON 2 L/MIN NC, SR ON MONITOR, DENIES CP. REPEAT LABS REVEAL K+ WNL, PT CLEARED FOR DC HOME. ALL IV ACCESS DC'd WNL. PT DRESSES SELF. PAPERWORK AND INSTRUCTIONS REVIEWED W/PT WHO V/U. PT ESCORTED FROM UNIT VIA W/C W/OUT INCIDENT.
== END 2025-06-17 14:47 | disposition home health service (06) | DRG 199 ==
LOC: ER 15:21 → PCU 22:47 → ERHOLD 22:47 → PCU 06-17 00:03
PROVIDERS: Student in an Organized Health Care Education/Training Program; ADMIT Student in an Organized Health Care Education/Training Program
DX: J95.811 Postprocedural pneumothorax (principal); J18.9 Pneumonia, unspecified organism; J96.21 Acute and chronic respiratory failure with hypoxia; J94.8 Other specified pleural conditions; J98.11 Atelectasis; J90 Pleural effusion, not elsewhere classified; E03.9 Hypothyroidism, unspecified; G25.81 Restless legs syndrome; E88.810 Metabolic syndrome; E66.9 Obesity, unspecified; I10 Essential (primary) hypertension; E87.6 Hypokalemia; F32.A Depression, unspecified; D72.829 Elevated white blood cell count, unspecified; Z85.3 Personal history of malignant neoplasm of breast; Z90.13 Acquired absence of bilateral breasts and nipples; Z92.21 Personal history of antineoplastic chemotherapy; Z92.3 Personal history of irradiation; Z99.81 Dependence on supplemental oxygen; Z88.8 Allergy status to other drugs, medicaments and biological substances; Z79.890 Hormone replacement therapy; Z68.35 Body mass index [BMI] 35.0-35.9, adult
CPT/HCPCS: 36415; 71046; 71260; 80053; 82945; 83605; 83615; 83735; 83986; 84132; 84157; 85025; 89051; 93005; 93010; 94762; A9270; J0295; J1650; J2270; J2405; J3480; J7050; Q9967